=== PATIENT | female | born 1960 | race Caucasian/White ===

== ENCOUNTER 2018-08-06 18:31 | Emergency (ER) | payer MEDICAID ==
[~2018-08-06] VITALS: Ht 165.1 cm; Wt 86.9 kg
[2018-08-06 18:37] VITALS: Ht 165.1 cm; Wt 86.9 kg
[2018-08-06] MEDS ORDERED: HC30CR25 TOP (19:16)
[2018-08-06] MEDS ORDERED: CETI10CA PO (19:16)
[2018-08-06] MEDS ORDERED: PRED20TA PO (19:16)
--- NOTE | 2018-08-06 19:18 | ERD ---
ER Documentation Chief Complaint Chief Complaint C/O RASH TO CHEST, ABDOMEN AND BACK OF NECK X3 DAYS HPI 58-year-old female presents with an itchy rash of the chest and abdomen the back of the neck. Started 3 days ago. She also has mild sore throat. She has no fevers, cough, vomiting, additional symptoms. ROS All systems reviewed and are negative except as per history of present illness. Medications Home Meds Active Scripts Prednisone* (Prednisone*) 20 Mg Tab, 40 MG PO DAILY for 4 Days, TAB Start August 07, 2018 Prov:MOISÉS RIVERA MD 08/06/18 Cetirizine Hcl* (Zyrtec*) 10 Mg Capsule, 10 MG PO DAILY, #15 TAB.CHEW Prov:MOISÉS RIVERA MD 08/06/18 Hydrocortisone* Topical (Hydrocortisone* Topical) 2.5%-28.3 Gm Cream..g., 1 APPLIC TOP BID for 10 Days, #1 TUB Prov:MOISÉS RIVERA MD 08/06/18 Allergies Allergies: Coded Allergies: No Known Allergy (Unverified , 08/06/18) FmHx Family History: No diabetes, No coronary disease, No other Physical Exam Vitals Vital Signs Date Temp Pulse Resp B/P (MAP) Pulse Ox O2 O2 Flow FiO2 Time Delivery Rate 08/06/18 99.0 92 19 157/84 97 18:37 (108) Physical Exam Const: No acute distress Head: Atraumatic Eyes: Normal Conjunctiva ENT: Normal External Ears, Nose and Mouth. Oropharynx normal. Neck: Full range of motion. No meningismus. Resp: Clear to auscultation bilaterally Cardio: Regular rate and rhythm, no murmurs Abd: Soft, non tender, non distended. Normal bowel sounds Skin: No petechiae or purpura. Large ring shaped plaque on the left anterior chest. Scattered erythematous ring-shaped plaques which are blanching on the anterior trunk as well. Back: No midline or flank tenderness Ext: No cyanosis, or edema Neur: Awake and alert Psych: Normal Mood and Affect Results 24 hrs Current Medications Medications Dose Sig/Kamla Start Time Status Last (Trade) Ordered Route PRN Stop Time Admin Dose Reason Admin Ibuprofen 600 mg ONCE ONCE 08/06/18 (Motrin) PO 19:30 08/06/18 19:31 Prednisone 40 mg ONCE ONCE 08/06/18 (Prednisone) PO 19:30 08/06/18 19:31 Procedures/MDM Patient has signs and symptoms likely pityriasis. Is no signs of cellulitis, purpura, life-threatening rashes. She will be treated with short course of prednisone, Zyrtec, hydrocortisone, primary care follow-up and return prec autions. The patient was stable with no new complaints during the ER course. Clinically, there is no current evidence to suggest meningitis, sepsis, acute abdomen, pneumonia, stroke, acute coronary syndrome, pulmonary embolism, aortic dissection or any other emergent condition appearing to require further evaluation or hospitalization. Patient counseled regarding my diagnostic i mpression and care plan. Prior to discharge all questions answered. Pt agrees with treatment plan and understands strict return precautions. Pt is instructed to follow up with primary care provider within 24-48 hours. Precautionary instructions provided including instructions to return to the ER if not improving or for any worsening or changing symptoms or concerns. Departure Diagnosis: Primary Impression: Pityriasis in adult Additional Impression: Rash Condition: Stable Patient Instructions: Pityriasis Rosea Additional Instructions: Likely viral rash may last several weeks. Recheck for new or worsening symptoms with primary care doctor. MOISÉS RIVERA MD Aug 06, 2018 19:18
[2018-08-06] MEDS ORDERED: predniSONE 20 MG TAB PO ONE (19:30)
[2018-08-06] MEDS ORDERED: IBUPROFEN 600 MG TAB PO ONE (19:30)
[2018-08-06 19:56] VITALS: BP 141/67; PULSE 84; RESP 18
== END 2018-08-06 19:57 | disposition home or self-care (01) ==
LOC: FTE 18:31
DX: L42 Pityriasis rosea (principal)
CPT/HCPCS: J7512; Z7502; Z7610; 99283